=== PATIENT | female | born 1945 | race Caucasian/White ===

== ENCOUNTER → 2016-08-21 | Outpatient (CLI) | payer OTHER | END | disposition home or self-care (01) | LOC: LAB 15:33 | PROVIDERS: ATTEND Physician Assistant | DX: R94.31 Abnormal electrocardiogram [ECG] [EKG] (principal) | CPT/HCPCS: 36415; 82550; 84484 ==

== ENCOUNTER 2017-04-07 18:07 | Emergency (ER) | payer MEDICARE, OTHER ==
[~2017-04-07] VITALS: Ht 162.6 cm; Wt 71.2 kg
[2017-04-07 20:03] LABS: Basophils # (auto) 0.1 uL; Basophils % (auto) 1.6 % (0.0-2.0); Eosinophils # (auto) 0.2 uL; Eosinophils % (auto) 2.9 % (0.0-7.0); Lymphocytes # (auto) 1.8 uL; Lymphocytes % (auto) 27.2 % (10.0-50.0); Mean Corpuscular Hgb Conc. 33.4 g/dL (32.0-36.0); Mean Corpuscular Volume 89.9 fL (80.0-100.0); Monocytes # (auto) 0.5 uL; Monocytes % (auto) 7.9 % (0.0-12.0); Neutrophils # (auto) 4.1 uL; Neutrophils % (auto) 60.4 % (37.0-80.0); Nucleated Red Blood Cells % 0.1 %; Platelet Count (auto) 132 10^3/uL (140-450); Red Blood Cells 4.35 10^6/uL (4.0-5.20); Red Cell Distribution Width 18.1 % (11.8-14.3); White Blood Cell 6.8 10^3/uL (4.4-10.8)
[2017-04-07 20:26] LABS: Albumin 3.9 g/dL (3.4-5.0); BUN/Creatinine Ratio 30.7; Bilirubin, Total 0.3 mg/dL (0.2-1.0); Calcium 8.8 mg/dL (8.5-10.1); Potassium 5.3 mmol/L (3.5-5.1); Total Protein 7.9 g/dL (6.4-8.2)
[2017-04-07 23:54] VITALS: BP 135/64
[2017-04-08 00:26] LABS: Albumin 3.5 g/dL (3.4-5.0); BUN/Creatinine Ratio 30.9; Bilirubin, Total 0.4 mg/dL (0.2-1.0); Calcium 8.7 mg/dL (8.5-10.1); Total Protein 7.1 g/dL (6.4-8.2)
== END 2017-04-08 01:21 | disposition home or self-care (01) ==
LOC: ER 18:07
DX: E87.5 Hyperkalemia (principal); I10 Essential (primary) hypertension; M10.9 Gout, unspecified; K21.9 Gastro-esophageal reflux disease without esophagitis; Z90.710 Acquired absence of both cervix and uterus; Z88.1 Allergy status to other antibiotic agents
CPT/HCPCS: 36415; 80053; 85025; 93005; 94761

== ENCOUNTER → 2018-02-11 | Outpatient (CLI) | payer MEDICARE, BC ==
[~2018-02-11] MED LIST: ALLO300T2 PO; ASPI81TA27 PO; CHOL20009 PO; CLON0.1T PO; DOCU100T15 PO; ESOM20CA PO; FURO20TA3 PO; LEVO125T7 PO; METO25TA62 PO; POLY33504 PO; PRAV20TA3 PO; SILD20TA PO; TELM80TA PO
[2018-02-11 08:30] VITALS: BP_SYST 116; BP_SYST 146; BP_DIAS 51; BP_DIAS 52
[2018-02-11 12:02] LABS: Basophils # (auto) 0 uL; Basophils % (auto) 0.6 % (0.0-2.0); Eosinophils # (auto) 0.2 uL; Eosinophils % (auto) 2.2 % (0.0-7.0); Hemoglobin 13.2 g/dL (12.2-16.2); Lymphocytes # (auto) 1.9 uL; Lymphocytes % (auto) 25.1 % (10.0-50.0); Monocytes # (auto) 0.4 uL; Monocytes % (auto) 5.6 % (0.0-12.0); Neutrophils % (auto) 66.5 % (37.0-80.0); Nucleated Red Blood Cells % 0.2 %; Red Blood Cells 4.46 10^6/uL (4.0-5.20); White Blood Cell 7.5 10^3/uL (4.4-10.8)
[2018-02-11 12:03] LABS: Hematocrit 41.2 % (36.0-46.0); Mean Corpuscular Hemoglobin 29.7 pg (28.0-32.0); Mean Corpuscular Hgb Conc. 32.1 g/dL (32.0-36.0); Mean Corpuscular Volume 92.4 fL (80.0-100.0); Platelet Count (auto) 121 10^3/uL (140-450); Red Cell Distribution Width 17.6 % (11.8-14.3)
[2018-02-11 12:12] LABS: BUN/Creatinine Ratio 47.9; Blood Urea Nitrogen 56 mg/dL (7-18); Calcium 9.2 mg/dL (8.5-10.1); Carbon Dioxide 22 mmol/L (21-32); GFR African American 58 mL/min; GFR Non-African American 48 mL/min; Glucose 134 mg/dL (74-106)
[2018-02-11 12:14] LABS: Anion Gap 8 (5-15); Chloride 110 mmol/L (98-107); Potassium 4.4 mmol/L (3.5-5.1); Sodium 140 mmol/L (136-145)
[2018-02-11 12:19] LABS: INR 0.9 (0.9-1.15); Partial Thromboplastin Time 28.6 sec (23.78-33.04); Prothrombin Time 9.7 sec (9.27-12.13)
== END | disposition home or self-care (01) ==
LOC: Rad HDHVI 08:18
PROVIDERS: ATTEND Internal Medicine Cardiovascular Disease
DX: Z01.818 Encounter for other preprocedural examination (principal); I70.0 Atherosclerosis of aorta; D64.9 Anemia, unspecified; R79.1 Abnormal coagulation profile; I10 Essential (primary) hypertension
CPT/HCPCS: 36415; 71046; 80048; 85025; 85610; 85730; 93005; G0463

== ENCOUNTER 2018-02-16 06:45 | Inpatient (IN) | payer MEDICARE, OTHER ==
[~2018-02-16] VITALS: Ht 162.6 cm; Wt 74.3 kg
[2018-02-16] MEDS ORDERED: IODIXANOL 320MG/ML 100ML BTL IV ONE ×2 (07:53→13:12)
[2018-02-16] MEDS ORDERED: LIDOCAINE 2%HCL (LOCAL ANESTH.) INJ 20ML MDV ONE (07:53)
[2018-02-16] MEDS ORDERED: cloNIDine HCL 0.1 MG TAB PO ONE (12:15)
[2018-02-16] MEDS ORDERED: MIDAZOLAM HCL 1MG/1ML-2 ML VIAL ONE (13:12)
[2018-02-16] MEDS ORDERED: ANGIOMAX 250 MG VIAL IV ONE (13:12)
[2018-02-16] MEDS ORDERED: SODIUM CHL 0.9% 50 ML ONE (13:12)
[2018-02-16] MEDS ORDERED: fentaNYL CITRATE 100 MCG/2 ML VL ONE (13:12)
[2018-02-16] MEDS ORDERED: CLOPIDOGREL 300 MG TAB ONE (13:56)
[2018-02-16] MEDS ORDERED: HYDROcodone-ACET 5/325MG TAB PO PRN (14:45)
[2018-02-16] MEDS ORDERED: ACETAMINOPHEN 500 MG TAB PO PRN (14:45)
[2018-02-16] MEDS ORDERED: MILK OF MAGNESIA 30ML SUSP PO ONE (14:45)
[2018-02-16] MEDS ORDERED: PATIENTS OWN MEDICATION (Docusate Sodium 100 MG) PO PRN (14:45)
[2018-02-16] MEDS ORDERED: MORPHINE SULFATE 4 MG/ML SYR/VIAL IV PRN (14:45)
[2018-02-16] MEDS ORDERED: NITROGLYCERIN 0.4 MG SL TAB SL PRN (14:45)
[2018-02-16] MEDS ORDERED: DOCUSATE SOD 100 MG CAP PO PRN (15:15)
[2018-02-16] MEDS: cloNIDine HCL 0.1 MG TAB PO SCH ×2 (18:00→22:38)
[2018-02-16] MEDS: SILDENAFIL 20 MG PO SCH (18:00)
[2018-02-16 23:44] VITALS: BP 134/67
[2018-02-17] MEDS: SILDENAFIL 20 MG PO SCH ×2 (06:04→11:19)
[2018-02-17] MEDS: cloNIDine HCL 0.1 MG TAB PO SCH ×2 (06:05→11:18)
[2018-02-17 06:17] VITALS: BP 137/67
[2018-02-17] MEDS ORDERED: LEVOTHYROXINE SODIUM 50 MCG TAB PO SCH (07:00)
[2018-02-17 08:00] VITALS: BP 112/54
[2018-02-17 09:00] VITALS: BP 112/54
[2018-02-17] MEDS ORDERED: CHOLECALCIFEROL (VITD3) 1,000 UNIT TAB PO SCH (10:00)
[2018-02-17] MEDS ORDERED: PRAVASTATIN SODIUM 20 MG TAB PO SCH (10:00)
[2018-02-17] MEDS ORDERED: METOPROLOL SUCCINATE XL 50 MG TAB PO SCH (10:00)
[2018-02-17] MEDS ORDERED: ASPirin-EC 81 mg tab PO SCH (10:00)
[2018-02-17] MEDS ORDERED: PANTOPRAZOLE 40 MG TAB PO SCH (10:00)
[2018-02-17] MEDS ORDERED: LOSARTAN POTASSIUM 50 MG TAB PO SCH (10:00)
[2018-02-17] MEDS ORDERED: FUROSEMIDE 20 MG TAB PO SCH (10:00)
[2018-02-17] MEDS ORDERED: ALLOPURINOL 300 MG TAB PO SCH (10:00)
[2018-02-17 13:00] VITALS: BP 129/55
[2018-02-17 15:07] VITALS: BP 112/54
== END 2018-02-17 15:35 | disposition home or self-care (01) | DRG 675 ==
LOC: CATH 06:45 → WEST WING 16:05 → TELE-WESTW 02-17 01:00
PROVIDERS: ADMIT Internal Medicine Cardiovascular Disease; ATTEND Internal Medicine Cardiovascular Disease
PROC: 047A3DZ Dilation of Left Renal Artery with Intraluminal Device, Percutaneous Approach (ICD-10-PCS; principal; 2018-02-16)
PROC: B41G1ZZ Fluoroscopy of Left Lower Extremity Arteries using Low Osmolar Contrast (ICD-10-PCS; 2018-02-16)
PROC: B41F1ZZ Fluoroscopy of Right Lower Extremity Arteries using Low Osmolar Contrast (ICD-10-PCS; 2018-02-16)
DX: I70.1 Atherosclerosis of renal artery (principal); I10 Essential (primary) hypertension; E78.5 Hyperlipidemia, unspecified; I27.20 Pulmonary hypertension, unspecified; Z82.49 Family history of ischemic heart disease and other diseases of the circulatory system; Z95.2 Presence of prosthetic heart valve; Z93.3 Colostomy status
CPT/HCPCS: 99152; A6257; G0378; J2250; Q9967

== ENCOUNTER 2018-04-20 12:56 | Emergency (ER) | payer MEDICARE, OTHER ==
[~2018-04-20] VITALS: Ht 162.6 cm; Wt 72.6 kg
[2018-04-20] MEDS ORDERED: ENOXAPARIN SOD 80 MG/0.8ML SYRINGE SC ONE (15:45)
[2018-04-20 16:56] VITALS: BP 162/39
== END 2018-04-20 16:57 | disposition home or self-care (01) ==
LOC: ER 13:02
DX: I83.891 Varicose veins of right lower extremity with other complications (principal); K21.9 Gastro-esophageal reflux disease without esophagitis; E78.5 Hyperlipidemia, unspecified; I10 Essential (primary) hypertension; Z86.39 Personal history of other endocrine, nutritional and metabolic disease; Z90.710 Acquired absence of both cervix and uterus; Z98.61 Coronary angioplasty status; Z88.1 Allergy status to other antibiotic agents
CPT/HCPCS: 93971; 96372; 99284; J1650

== ENCOUNTER → 2019-02-25 | Outpatient (CLI) | payer MEDICARE, BC ==
[~2019-02-25] VITALS: Ht 162.6 cm; Wt 63.5 kg
[~2019-02-25] MED LIST changes: +ADENOSINE 53 MG in GIVE UN-DILUTED 0 ML IV ONE; +ADENOSINE 90 MG/30 ML INJ IV ONE; +ASPI-404 PO; -ASPI81TA27 PO; -METO25TA62 PO; +METO25TA93 PO
== END | disposition home or self-care (01) ==
LOC: Rad HDHVI 09:18
PROVIDERS: ATTEND Internal Medicine Cardiovascular Disease
DX: I10 Essential (primary) hypertension (principal); E03.9 Hypothyroidism, unspecified; M79.89 Other specified soft tissue disorders; E78.00 Pure hypercholesterolemia, unspecified; E11.9 Type 2 diabetes mellitus without complications; I25.10 Atherosclerotic heart disease of native coronary artery without angina pectoris; R06.02 Shortness of breath; Z95.2 Presence of prosthetic heart valve
CPT/HCPCS: 78452; 93005; 96374; 96375; A9500; J0153

== ENCOUNTER → 2019-07-23 | Outpatient (CLI) | payer MEDICARE, BC ==
[~2019-07-23] MED LIST changes: -ADENOSINE 53 MG in GIVE UN-DILUTED 0 ML IV ONE; -ADENOSINE 90 MG/30 ML INJ IV ONE
[2019-07-23 12:11] LABS: Basophils # (auto) 0 10 ^3/uL (0-0.2); Basophils % (auto) 0.7 % (0.0-2.0); Eosinophils # (auto) 0.1 10 ^3/uL (0-0.8); Eosinophils % (auto) 1.7 % (0.0-7.0); Hematocrit 42.7 % (36.0-46.0); Hemoglobin 13.8 g/dL (12.2-16.2); Lymphocytes # (auto) 1.9 10 ^3/uL (0.4-5.4); Lymphocytes % (auto) 30.8 % (10.0-50.0); Mean Corpuscular Hemoglobin 29.3 pg (28.0-32.0); Mean Corpuscular Hgb Conc. 32.3 g/dL (32.0-36.0); Mean Corpuscular Volume 90.8 fL (80.0-100.0); Monocytes # (auto) 0.3 10 ^3/uL (0-1.3); Monocytes % (auto) 5.4 % (0.0-12.0); Neutrophils # (auto) 3.7 10 ^3/uL (1.6-8.6); Neutrophils % (auto) 61.4 % (37.0-80.0); Nucleated Red Blood Cells % 0.1 %; Platelet Count (auto) 105 10^3/uL (140-450)
[2019-07-23 12:13] LABS: Urine Blood Negative /uL (Negative); Urine Specific Gravity 1.005 (1.001-1.035)
[2019-07-23 12:30] LABS: Albumin 3.7 g/dL (3.4-5.0); Calcium 9.2 mg/dL (8.5-10.1); Potassium 4.7 mmol/L (3.5-5.1)
[2019-07-23 12:31] LABS: Free T4 (Free Thyroxine) 1.36 ng/dL (0.89-1.76)
[2019-07-23 12:35] LABS: Bilirubin, Total 0.4 mg/dL (0.2-1.0); Total Protein 7.5 g/dL (6.4-8.2)
== END | disposition home or self-care (01) ==
LOC: Rad HDHVI 09:12
PROVIDERS: ATTEND Internal Medicine Cardiovascular Disease
DX: Z00.00 Encounter for general adult medical examination without abnormal findings (principal); E03.9 Hypothyroidism, unspecified; K90.9 Intestinal malabsorption, unspecified; Z79.899 Other long term (current) drug therapy; N39.0 Urinary tract infection, site not specified; D51.9 Vitamin B12 deficiency anemia, unspecified
CPT/HCPCS: 36415; 80053; 80061; 81003; 82306; 82607; 83036; 84439; 84443; 85025; 93306

== ENCOUNTER 2019-11-12 20:49 | Inpatient (IN) | payer MEDICARE, OTHER ==
[~2019-11-12] VITALS: Ht 167.6 cm; Wt 65.3 kg
[~2019-11-12 20:49] MED LIST changes: -ASPI-404 PO; +ASPI-543 PO
[2019-11-13 01:11] LABS: Basophils # (auto) 0.1 10 ^3/uL (0-0.2); Basophils % (auto) 0.6 % (0.0-2.0); Eosinophils # (auto) 0 10 ^3/uL (0-0.8); Eosinophils % (auto) 0.2 % (0.0-7.0); Hematocrit 43.4 % (36.0-46.0); Hemoglobin 14.2 g/dL (12.2-16.2); Lymphocytes # (auto) 1.1 10 ^3/uL (0.4-5.4); Lymphocytes % (auto) 9.2 % (10.0-50.0); Mean Corpuscular Hemoglobin 30.1 pg (28.0-32.0); Mean Corpuscular Hgb Conc. 32.6 g/dL (32.0-36.0); Mean Corpuscular Volume 92.2 fL (80.0-100.0); Monocytes # (auto) 0.4 10 ^3/uL (0-1.3); Monocytes % (auto) 3.3 % (0.0-12.0); Neutrophils % (auto) 86.7 % (37.0-80.0); Nucleated Red Blood Cells % 0.2 %; Platelet Count (auto) 122 10^3/uL (140-450); Red Blood Cells 4.71 10^6/uL (4.0-5.20); Red Cell Distribution Width 18.1 % (11.8-14.3); White Blood Cell 11.5 10^3/uL (4.4-10.8)
[2019-11-13 01:26] LABS: Albumin 3.5 g/dL (3.4-5.0); BUN/Creatinine Ratio 36.7; Magnesium 1.7 mg/dL (1.6-2.6); Potassium 3.8 mmol/L (3.5-5.1)
[2019-11-13 01:31] LABS: Bilirubin, Total 0.5 mg/dL (0.2-1.0); Total Protein 7.1 g/dL (6.4-8.2)
[2019-11-13] MEDS ORDERED: ACE325T PO (02:38)
[2019-11-13] MEDS ORDERED: POLY33504 PO (02:38)
[2019-11-13] MEDS ORDERED: MORPHINE SULF INJ 2 MG/ML SYRINGE 1ML IV PRN ×2 (09:00→11:00)
[2019-11-13] MEDS ORDERED: NITROGLYCERIN 0.4 MG SL TAB SL PRN (09:00)
[2019-11-13] MEDS ORDERED: traMADol HCL 50 MG TAB PO PRN (11:00)
[2019-11-13] MEDS ORDERED: LACTULOSE 20Gm/30ML SOLN PO PRN (11:00)
[2019-11-13] MEDS ORDERED: ACETAMINOPHEN 500 MG TAB PO PRN (11:00)
[2019-11-13] MEDS ORDERED: TEMAZEPAM 15 MG CAP PO PRN (11:00)
[2019-11-13] MEDS ORDERED: ONDANSETRON HCL 4 MG/2 ML VIAL IV PRN ×2 (11:00)
[2019-11-13] MEDS ORDERED: LABETALOL HCL 5 MG/ML ML 20ML VIAL IV PRN (11:00)
[2019-11-13] MEDS: SODIUM CHLORIDE 0.9% 1,000 ML IV SCH (11:39)
[2019-11-13] MEDS: POLYETHYLENE GLYCOL 17 GM PWDR PO SCH (12:55)
--- NOTE | 2019-11-13 13:47 | NUR ---
Telemetry admit from ER RENETTA DOWD admitted to Telemetry unit after SBAR received. Patient oriented to NOEMI ARIZMENDI RN primary RN, unit, room, bed, and unit policies regarding patient care. Patient now on continuous telemetry monitoring, tele box # 47 and telemetry reading on arrival to unit is sinus 81. Patient placed on bedside oxygen, 2L NC, respirations even and unlabored. Patient denies pain at this time. Reviewed plan of care with patient, patient verbalized understanding. Bed in low and locked position, call light within reach. Will continue to monitor Q1 hour and PRN.
[2019-11-13] MEDS ORDERED: SILDENAFIL CITRATE 20 MG TAB PO SCH (14:00)
--- NOTE | 2019-11-13 14:30 | NUR ---
POM Patients home medications taken down to pharmacy.
[2019-11-13 17:00] VITALS: BP 133/56
--- NOTE | 2019-11-13 19:23 | NUR ---
Closing Note Report given to script writer N.No signs or symptoms of distress noted at this time.
--- NOTE | 2019-11-13 19:50 | NUR ---
ASSUMED CARE, PT. AWAKE, ORIENTED X3, FORGETFUL, NO C/O PAIN, NOT IN DISTRESS.
[2019-11-13] MEDS: PRAVASTATIN SODIUM 20 MG TAB PO SCH (21:05)
[2019-11-13] MEDS: FAMOTIDINE 20 MG TAB PO SCH (21:05)
[2019-11-13 22:00] VITALS: BP 133/52
[2019-11-14] MEDS: SODIUM CHLORIDE 0.9% 1,000 ML IV SCH (00:21)
[2019-11-14 05:00] VITALS: BP 138/63
[2019-11-14] MEDS: LEVOTHYROXINE SODIUM 100 MCG TAB PO SCH (06:09)
--- NOTE | 2019-11-14 07:25 | NUR ---
Opening Note Received report from assistant casino shift manager RN. Patient is awake, alert and oriented x4. No signs or symptoms of distress noted at this time. Patient is on room air, respirations even and unlabored. Patient denies pain at this time. Reviewed plan of care with patient, patient verbalized understanding. Bed in low and locked position, call light within reach, bed alarm on for safety. Will continue to monitor Q1 hour and PRN.
[2019-11-14 08:06] LABS: Basophils # (auto) 0 10 ^3/uL (0-0.2); Basophils % (auto) 0.7 % (0.0-2.0); Eosinophils # (auto) 0.1 10 ^3/uL (0-0.8); Eosinophils % (auto) 1.1 % (0.0-7.0); Hematocrit 35.5 % (36.0-46.0); Hemoglobin 11.6 g/dL (12.2-16.2); Lymphocytes # (auto) 1.6 10 ^3/uL (0.4-5.4); Lymphocytes % (auto) 26.1 % (10.0-50.0); Mean Corpuscular Hemoglobin 30.2 pg (28.0-32.0); Mean Corpuscular Hgb Conc. 32.6 g/dL (32.0-36.0); Mean Corpuscular Volume 92.6 fL (80.0-100.0); Monocytes # (auto) 0.4 10 ^3/uL (0-1.3); Monocytes % (auto) 6.7 % (0.0-12.0); Neutrophils % (auto) 65.4 % (37.0-80.0); Nucleated Red Blood Cells % 0.1 %; Platelet Count (auto) 99 10^3/uL (140-450); Red Blood Cells 3.84 10^6/uL (4.0-5.20); Red Cell Distribution Width 18.4 % (11.8-14.3); White Blood Cell 6.1 10^3/uL (4.4-10.8)
[2019-11-14 08:30] LABS: Albumin 2.8 g/dL (3.4-5.0); BUN/Creatinine Ratio 36.4; Calcium 8.5 mg/dL (8.5-10.1); Potassium 4.2 mmol/L (3.5-5.1)
[2019-11-14 08:33] LABS: Bilirubin, Total 0.6 mg/dL (0.2-1.0); Total Protein 6.2 g/dL (6.4-8.2)
[2019-11-14] MEDS: CHOLECALCIFEROL (VITD3) 1,000UNIT=25mCg TAB PO SCH (08:48)
[2019-11-14] MEDS: ALLOPURINOL 100 MG TAB PO SCH (08:48)
[2019-11-14] MEDS: ASPirin-EC 81 mg tab PO SCH (08:48)
[2019-11-14] MEDS: POLYETHYLENE GLYCOL 17 GM PWDR PO SCH (08:50)
[2019-11-14 09:00] VITALS: BP 109/48
[2019-11-14] MEDS: ENOXAPARIN SOD 40 MG/0.4 ML SYRINGE SC SCH (10:00)
--- NOTE | 2019-11-14 11:15 | NUR ---
Urine sample collected and sent to lab
[2019-11-14 11:31] LABS: Urine Bacteria NONE SEEN /hpf (None Seen); Urine Blood Negative /uL (Negative); Urine Mucus FEW (None Seen); Urine Specific Gravity 1.012 (1.001-1.035); Urine WBC 86 /hpf (0 - 5)
[2019-11-14 13:00] VITALS: BP 140/72
[2019-11-14 16:29] VITALS: BP 142/68
--- NOTE | 2019-11-14 19:16 | NUR ---
Closing Note Report given to control room tender RN. No signs or symptoms of distress noted at this time.
[2019-11-14 21:59] VITALS: BP 143/71
[2019-11-14] MEDS: FAMOTIDINE 20 MG TAB PO SCH (23:40)
[2019-11-14] MEDS: PRAVASTATIN SODIUM 20 MG TAB PO SCH (23:41)
[2019-11-15 05:05] VITALS: BP 152/67
[2019-11-15] MEDS: LEVOTHYROXINE SODIUM 100 MCG TAB PO SCH (06:30)
--- NOTE | 2019-11-15 07:30 | NUR ---
Opening Note Received report from night stocker RN. Patient is awake, alert and oriented x4. No signs or symptoms of distress noted at this time. Patient is on room air, respirations even and unlabored. Reviewed plan of care with patient, patient verbalized understanding. Bed in low and locked position, call light within reach, bed alarm on for safety. Will continue to monitor Q1 hour and PRN.
[2019-11-15 08:00] VITALS: BP 148/77
[2019-11-15] MEDS: CHOLECALCIFEROL (VITD3) 1,000UNIT=25mCg TAB PO SCH (09:39)
[2019-11-15] MEDS: ALLOPURINOL 100 MG TAB PO SCH (09:39)
[2019-11-15] MEDS: ASPirin-EC 81 mg tab PO SCH (09:39)
[2019-11-15] MEDS: ENOXAPARIN SOD 40 MG/0.4 ML SYRINGE SC SCH (09:42)
[2019-11-15] MEDS: POLYETHYLENE GLYCOL 17 GM PWDR PO SCH (09:43)
[2019-11-15 12:00] VITALS: BP 158/74
--- NOTE | 2019-11-15 13:30 | NUR ---
Dr. Salcido at bedside MD at bedside discussing plan of care with patient and this RN. Patient to discharge home today. Will implement new orders. Will continue to monitor Q1 hour and PRN.
[2019-11-15 14:02] VITALS: BP 148/77
--- NOTE | 2019-11-15 16:00 | NUR ---
Discharge Discharge instructions given as ordered. Encourage to follow up with PMD as instructed. All questions and concerns addressed. Patient verbalized understanding. Medication reconciliation form completed and copy given to patient. Home medications held in Pharmacy returned to patient. IV removed with catheter intact, pressure dressing applied. Telemetry unit removed and returned to ICU. Patient taken to vehicle via wheelchair with all personal belongings, accompanied by staff member. No signs or symptoms of distress noted at this time.
== END 2019-11-15 16:00 | disposition home or self-care (01) | DRG 641 ==
LOC: ER 20:49 → EDBD 20:49 → TELE 20:50 → TELE-CENTR 11-13 13:47
PROVIDERS: ADMIT Internal Medicine; ATTEND Internal Medicine
DX: E86.9 Volume depletion, unspecified (principal); G40.89 Other seizures; J98.11 Atelectasis; N17.9 Acute kidney failure, unspecified; M34.9 Systemic sclerosis, unspecified; D69.6 Thrombocytopenia, unspecified; K21.9 Gastro-esophageal reflux disease without esophagitis; M10.9 Gout, unspecified; E86.1 Hypovolemia; D72.829 Elevated white blood cell count, unspecified; I27.21 Secondary pulmonary arterial hypertension; E03.9 Hypothyroidism, unspecified; E78.5 Hyperlipidemia, unspecified; I10 Essential (primary) hypertension; I25.10 Atherosclerotic heart disease of native coronary artery without angina pectoris; I95.1 Orthostatic hypotension; Z90.710 Acquired absence of both cervix and uterus; Z93.3 Colostomy status; Z95.2 Presence of prosthetic heart valve; Z95.5 Presence of coronary angioplasty implant and graft; Z88.1 Allergy status to other antibiotic agents
CPT/HCPCS: 36415; 70450; 71045; 72125; 80053; 81001; 82550; 83735; 83880; 84484; 85025; 85379; 93005; 93886; G0378

== ENCOUNTER → 2020-05-01 | Outpatient (CLI) | payer MEDICARE, BC ==
[~2020-05-01] MED LIST changes: +ACET325T10 PO; -DOCU100T15 PO; -ESOM20CA PO; +IOHEXOL 350 MG/ML 100ML IJ ONE; -METO25TA93 PO; -TELM80TA PO
[2020-05-01 09:23] VITALS: BP 128/68
[2020-05-01 09:51] VITALS: BP 147/53
== END | disposition home or self-care (01) ==
LOC: Rad HDHVI 09:15
PROVIDERS: ATTEND Internal Medicine Cardiovascular Disease
DX: I71.4 Abdominal aortic aneurysm, without rupture (principal); E04.1 Nontoxic single thyroid nodule; Z88.8 Allergy status to other drugs, medicaments and biological substances
CPT/HCPCS: G0463; Q9967

== ENCOUNTER → 2020-06-02 | Outpatient (CLI) | payer MEDICARE, BC ==
[~2020-06-02] MED LIST changes: -IOHEXOL 350 MG/ML 100ML IJ ONE; +NAPR-1334 PO
[2020-06-02 08:43] VITALS: BP 130/77
[2020-06-02 08:58] VITALS: BP 125/60
[2020-06-02 12:17] LABS: Basophils # (auto) 0 10 ^3/uL (0-0.2); Basophils % (auto) 0.7 % (0.0-2.0); Eosinophils # (auto) 0.3 10 ^3/uL (0-0.8); Eosinophils % (auto) 4.2 % (0.0-7.0); Hematocrit 39.6 % (36.0-46.0); Hemoglobin 12.9 g/dL (12.2-16.2); Lymphocytes # (auto) 1.8 10 ^3/uL (0.4-5.4); Lymphocytes % (auto) 27.7 % (10.0-50.0); Mean Corpuscular Hemoglobin 29.9 pg (28.0-32.0); Mean Corpuscular Hgb Conc. 32.5 g/dL (32.0-36.0); Mean Corpuscular Volume 91.8 fL (80.0-100.0); Monocytes # (auto) 0.6 10 ^3/uL (0-1.3); Monocytes % (auto) 8.8 % (0.0-12.0); Neutrophils # (auto) 3.9 10 ^3/uL (1.6-8.6); Neutrophils % (auto) 58.6 % (37.0-80.0); Nucleated Red Blood Cells % 0.1 %; Platelet Count (auto) 138 10^3/uL (140-450); Red Blood Cells 4.31 10^6/uL (4.0-5.20); Red Cell Distribution Width 18.4 % (11.8-14.3); White Blood Cell 6.6 10^3/uL (4.4-10.8)
[2020-06-02 12:52] LABS: Calcium 9.2 mg/dL (8.5-10.1); Potassium 4.7 mmol/L (3.5-5.1)
[2020-06-02 12:57] LABS: INR 0.94 (0.9-1.15); Partial Thromboplastin Time 28.2 sec (23.0-31.2)
== END | disposition home or self-care (01) ==
LOC: Rad HDHVI 08:22
PROVIDERS: ATTEND Internal Medicine Cardiovascular Disease
DX: Z01.812 Encounter for preprocedural laboratory examination (principal); I51.7 Cardiomegaly; I70.0 Atherosclerosis of aorta; Z95.2 Presence of prosthetic heart valve
CPT/HCPCS: 36415; 71046; 80048; 85025; 85610; 85730; 93005; G0463

== ENCOUNTER → 2020-06-08 | Day surgery (SDC) | payer MEDICARE, BC ==
[~2020-06-08] VITALS: Ht 162.6 cm; Wt 64.9 kg
[~2020-06-08] MED LIST changes: +ANGIOMAX 250 MG VIAL IV ONE; +CLOPIDOGREL BISULFATE 75 MG TAB ONE; +IODIXANOL 320MG/ML 100ML BTL IV ONE; +IOHEXOL 350 MG/ML 100ML IJ ONE; +LIDOCAINE 2%HCL (LOCAL ANESTH.) INJ 20ML MDV ONE; +MIDAZOLAM HCL 1MG/1ML-2 ML VIAL ONE; +SODIUM CHL 0.9% 50 ML ONE; +fentaNYL CITRATE 100 MCG/2 ML VL ONE
== END | disposition home or self-care (01) ==
LOC: CATH 08:13
PROVIDERS: ATTEND Internal Medicine Cardiovascular Disease
DX: I70.211 Atherosclerosis of native arteries of extremities with intermittent claudication, right leg (principal); Z98.890 Other specified postprocedural states; Z20.822 Contact with and (suspected) exposure to COVID-19; Z88.1 Allergy status to other antibiotic agents; Z88.8 Allergy status to other drugs, medicaments and biological substances; Z90.710 Acquired absence of both cervix and uterus; Z79.899 Other long term (current) drug therapy
CPT/HCPCS: 37224; 37228; 75716; C1725; C1760; C1769; C1887; C1894; J0583; J1644; J2250; J3010; Q9967; U0003; 99152; 99153

== ENCOUNTER → 2020-07-14 | Outpatient (CLI) | payer MEDICARE, BC ==
[~2020-07-14] MED LIST changes: +ACET-1080 PO; -ANGIOMAX 250 MG VIAL IV ONE; +CALC500C3 PO; +CHOL20007 PO; +CLOP75TA28 PO; -CLOPIDOGREL BISULFATE 75 MG TAB ONE; +FURO1TAB31 PO; +HYDR12.56 PO; +IBUP200C3 PO; -IODIXANOL 320MG/ML 100ML BTL IV ONE; -IOHEXOL 350 MG/ML 100ML IJ ONE; -LIDOCAINE 2%HCL (LOCAL ANESTH.) INJ 20ML MDV ONE; -MIDAZOLAM HCL 1MG/1ML-2 ML VIAL ONE; +MULT1CAP24 PO; +PANT40TA2 PO; +POTA10TA51 PO; -SODIUM CHL 0.9% 50 ML ONE; -fentaNYL CITRATE 100 MCG/2 ML VL ONE
== END | disposition home or self-care (01) ==
LOC: Rad HDHVI 08:56
PROVIDERS: ATTEND Internal Medicine Cardiovascular Disease
DX: I70.201 Unspecified atherosclerosis of native arteries of extremities, right leg (principal); I10 Essential (primary) hypertension; R60.9 Edema, unspecified
CPT/HCPCS: 93926

== ENCOUNTER → 2020-09-27 | Outpatient (CLI) | payer MEDICARE, BC ==
[2020-09-27 09:26] VITALS: BP 149/65
[2020-09-27 10:00] VITALS: BP 110/52
[2020-09-27 11:46] LABS: Basophils # (auto) 0 10 ^3/uL (0-0.2); Basophils % (auto) 0.7 % (0.0-2.0); Eosinophils # (auto) 0.1 10 ^3/uL (0-0.8); Eosinophils % (auto) 2.1 % (0.0-7.0); Hematocrit 38.1 % (36.0-46.0); Hemoglobin 12.3 g/dL (12.2-16.2); Lymphocytes # (auto) 1.4 10 ^3/uL (0.4-5.4); Lymphocytes % (auto) 23.1 % (10.0-50.0); Mean Corpuscular Hemoglobin 28.7 pg (28.0-32.0); Mean Corpuscular Hgb Conc. 32.2 g/dL (32.0-36.0); Monocytes # (auto) 0.4 10 ^3/uL (0-1.3); Monocytes % (auto) 6.7 % (0.0-12.0); Neutrophils % (auto) 67.4 % (37.0-80.0); Red Blood Cells 4.28 10^6/uL (4.0-5.20); Red Cell Distribution Width 18.8 % (11.8-14.3); White Blood Cell 5.9 10^3/uL (4.4-10.8)
[2020-09-27 12:02] LABS: BUN/Creatinine Ratio 48.1; Calcium 9.1 mg/dL (8.5-10.1); Potassium 4.3 mmol/L (3.5-5.1)
[2020-09-27 12:06] LABS: INR 0.97 (0.9-1.15); Partial Thromboplastin Time 28.3 sec (23.0-31.2)
== END | disposition home or self-care (01) ==
LOC: Rad HDHVI 09:06
PROVIDERS: ATTEND Internal Medicine Cardiovascular Disease
DX: Z01.812 Encounter for preprocedural laboratory examination (principal); I10 Essential (primary) hypertension; I73.9 Peripheral vascular disease, unspecified
CPT/HCPCS: 36415; 80048; 85025; 85610; 85730; 93005; G0463

== ENCOUNTER 2020-09-29 06:55 | Inpatient (IN) | payer MEDICARE, BC ==
[~2020-09-29] VITALS: Ht 162.6 cm; Wt 66.6 kg
[2020-09-29] MEDS ORDERED: HEPARIN IN NS 1000Units/500mL 1,500 ML ONE (08:54)
[2020-09-29] MEDS ORDERED: LIDOCAINE 2%HCL (LOCAL ANESTH.) INJ 20ML MDV ONE (08:54)
[2020-09-29] MEDS ORDERED: IODIXANOL 320MG/ML 100ML BTL IV ONE ×2 (08:54→11:02)
[2020-09-29] MEDS ORDERED: fentaNYL CITRATE 100 MCG/2 ML VL ONE (09:37)
[2020-09-29] MEDS ORDERED: ANGIOMAX 250 MG VIAL IV ONE (09:37)
[2020-09-29] MEDS ORDERED: SODIUM CHL 0.9% 50 ML ONE (09:38)
[2020-09-29] MEDS ORDERED: MIDAZOLAM HCL 2MG/2ML 2ml VIAL (1mg/ml) ONE (09:38)
[2020-09-29] MEDS ORDERED: diphenhdrAMINE HCL 50 MG/1 ML VL ONE (09:39)
[2020-09-29] MEDS ORDERED: cloNIDine HCL 0.1 MG TAB ONE (12:09)
[2020-09-29] MEDS ORDERED: ACETAMINOPHEN 500 MG TAB PO PRN (12:45)
[2020-09-29] MEDS ORDERED: ONDANSETRON HCL 4 MG/2 ML VIAL IV PRN (12:45)
[2020-09-29] MEDS ORDERED: NITROGLYCERIN 0.4 MG SL TAB SL PRN (13:00)
[2020-09-29] MEDS ORDERED: MORPHINE SULF INJ 2 MG/ML SYRINGE 1ML IV PRN (13:00)
[2020-09-29] MEDS ORDERED: cloNIDine HCL 0.1 MG TAB PO PRN (15:15)
[2020-09-29] MEDS ORDERED: ACETAMINOPHEN 325 MG TAB PO PRN (16:30)
[2020-09-29 17:00] VITALS: BP 156/55
[2020-09-29] MEDS ORDERED: IBUPROFEN 400 MG TAB PO PRN (17:45)
[2020-09-29 20:00] VITALS: BP 126/58
[2020-09-29] MEDS: SILDENAFIL CITRATE 20 MG TAB PO SCH (21:01)
[2020-09-29 21:13] VITALS: BP 126/58
[2020-09-29] MEDS ORDERED: PRAVASTATIN SODIUM 20 MG TAB PO SCH (22:00)
[2020-09-30 05:28] VITALS: BP 139/66
[2020-09-30] MEDS: SILDENAFIL CITRATE 20 MG TAB PO SCH (06:45)
[2020-09-30] MEDS ORDERED: LEVOTHYROXINE SODIUM 25 MCG TAB PO SCH (07:00)
[2020-09-30] MEDS ORDERED: LEVOTHYROXINE SODIUM 100 MCG TAB PO SCH (07:00)
[2020-09-30 09:00] VITALS: BP 141/53
[2020-09-30] MEDS ORDERED: ASPirin-EC 81 mg tab PO SCH (10:00)
[2020-09-30] MEDS ORDERED: PANTOPRAZOLE 40 MG TAB PO SCH (10:00)
[2020-09-30] MEDS ORDERED: POTASSIUM CHL 10 Meq TABLET PO SCH (10:00)
[2020-09-30] MEDS ORDERED: CALCIUM CARB 500 MG CHEW TAB PO PRN (10:00)
[2020-09-30] MEDS ORDERED: HCTZ 25 MG TAB PO SCH (10:00)
[2020-09-30] MEDS ORDERED: CLOPIDOGREL BISULFATE 75 MG TAB PO SCH (10:00)
[2020-09-30] MEDS ORDERED: ALLOPURINOL 300 MG TAB PO SCH (10:00)
[2020-09-30] MEDS ORDERED: CHOLECALCIFEROL (VITD3) 1,000UNIT=25mCg TAB PO SCH (10:00)
[2020-09-30] MEDS ORDERED: POLYETHYLENE GLYCOL 17 GM PWDR PO SCH (10:00)
[2020-09-30] MEDS ORDERED: FUROSEMIDE 40 MG TAB PO SCH (10:00)
[2020-09-30] MEDS ORDERED: MULTIPLE VITAMINS W/ MINERALS TAB PO SCH (10:00)
[2020-09-30 11:49] VITALS: BP 143/46
== END 2020-09-30 12:00 | disposition left against medical advice (07) | DRG 253 ==
LOC: CATH 06:55 → OVERFLOW 13:00 → WEST WING 14:51
PROVIDERS: ADMIT Internal Medicine; ATTEND Internal Medicine
PROC: 047L3ZZ Dilation of Left Femoral Artery, Percutaneous Approach (ICD-10-PCS; principal; 2020-09-29)
PROC: 047S3Z1 Dilation of Left Posterior Tibial Artery using Drug-Coated Balloon, Percutaneous Approach (ICD-10-PCS; 2020-09-29)
PROC: B41GYZZ Fluoroscopy of Left Lower Extremity Arteries using Other Contrast (ICD-10-PCS; 2020-09-29)
PROC: B41FYZZ Fluoroscopy of Right Lower Extremity Arteries using Other Contrast (ICD-10-PCS; 2020-09-29)
DX: I73.9 Peripheral vascular disease, unspecified (principal); I27.0 Primary pulmonary hypertension; E03.9 Hypothyroidism, unspecified; E78.5 Hyperlipidemia, unspecified; I50.9 Heart failure, unspecified; I70.1 Atherosclerosis of renal artery; M34.9 Systemic sclerosis, unspecified; Z95.2 Presence of prosthetic heart valve; Z79.899 Other long term (current) drug therapy
CPT/HCPCS: 36415; 37224; 37228; 71046; 80048; 85025; 85610; 85730; 93005; 99152; 99153; G0378; G0463; J2250; Q9967